=== PATIENT | male | born 1950 | race Caucasian/White ===

== ENCOUNTER 2022-01-04 09:18 | Emergency (ER) | payer MEDICARE, OTHER | END 2022-01-04 11:37 | disposition home or self-care (01) | LOC: JD.ED 09:18 | DX: J44.1 Chronic obstructive pulmonary disease with (acute) exacerbation (principal); E78.00 Pure hypercholesterolemia, unspecified; I10 Essential (primary) hypertension; Z87.891 Personal history of nicotine dependence; Z86.16 Personal history of COVID-19; Z79.899 Other long term (current) drug therapy | CPT/HCPCS: 36415; 71046; 71046-26; 80053; 84484; 85025; 85379; 93005; 99284; 99285-25 ==